=== PATIENT | female | born 1950 | race Caucasian/White ===

== ENCOUNTER 2017-11-07 15:14 | Emergency (ER) | payer MEDICARE, OTHER ==
[~2017-11-07] VITALS: Ht 160 cm; Wt 173.4 kg
[2017-11-07 15:16] VITALS: BP 156/87
[2017-11-07] MEDS ORDERED: HYDR-565 PO (16:00)
== END 2017-11-07 16:13 | disposition home or self-care (01) ==
LOC: ER 15:14
DX: S59.902A Unspecified injury of left elbow, initial encounter (principal); I25.10 Atherosclerotic heart disease of native coronary artery without angina pectoris; E78.00 Pure hypercholesterolemia, unspecified; I10 Essential (primary) hypertension; F17.200 Nicotine dependence, unspecified, uncomplicated; Z95.1 Presence of aortocoronary bypass graft; Z98.61 Coronary angioplasty status; Z79.899 Other long term (current) drug therapy; X58.XXXA Exposure to other specified factors, initial encounter; Y93.89 Activity, other specified; Y92.89 Other specified places as the place of occurrence of the external cause; Y99.8 Other external cause status
CPT/HCPCS: 73080; 99284; A4565

== ENCOUNTER 2017-11-24 09:08 | Outpatient (CLI) | payer MEDICARE, OTHER ==
[2017-11-24 09:10] VITALS: BP 141/71
== END 2017-11-24 10:05 | disposition home or self-care (01) ==
LOC: ORTHO 09:08
PROVIDERS: ATTEND Nurse Practitioner Family
DX: S52.125A Nondisplaced fracture of head of left radius, initial encounter for closed fracture (principal); S59.902A Unspecified injury of left elbow, initial encounter; F17.210 Nicotine dependence, cigarettes, uncomplicated; I10 Essential (primary) hypertension; F12.90 Cannabis use, unspecified, uncomplicated; Z60.2 Problems related to living alone; Z90.710 Acquired absence of both cervix and uterus; Z79.82 Long term (current) use of aspirin; X58.XXXA Exposure to other specified factors, initial encounter; Y93.89 Activity, other specified; Y92.89 Other specified places as the place of occurrence of the external cause; Y99.8 Other external cause status
CPT/HCPCS: 73080; 99213; A4565; A6449

== ENCOUNTER 2017-12-10 11:03 | Outpatient (CLI) | payer MEDICARE, OTHER ==
[2017-12-10 11:03] VITALS: BP 159/80
== END 2017-12-10 11:41 | disposition home or self-care (01) ==
LOC: ORTHO 11:03
PROVIDERS: ATTEND Nurse Practitioner Family
DX: S52.125D Nondisplaced fracture of head of left radius, subsequent encounter for closed fracture with routine healing (principal); S59.902D Unspecified injury of left elbow, subsequent encounter; M85.88 Other specified disorders of bone density and structure, other site; M19.022 Primary osteoarthritis, left elbow; F12.90 Cannabis use, unspecified, uncomplicated; F17.210 Nicotine dependence, cigarettes, uncomplicated; I10 Essential (primary) hypertension; Z90.710 Acquired absence of both cervix and uterus; X58.XXXD Exposure to other specified factors, subsequent encounter
CPT/HCPCS: 73080; 99213

== ENCOUNTER 2018-01-07 10:35 | Outpatient (CLI) | payer MEDICARE, OTHER ==
[2018-01-07 10:57] VITALS: BP 162/85
== END 2018-01-07 11:35 | disposition home or self-care (01) ==
LOC: ORTHO 10:35
PROVIDERS: ATTEND Nurse Practitioner Family
DX: S52.125D Nondisplaced fracture of head of left radius, subsequent encounter for closed fracture with routine healing (principal); S59.902D Unspecified injury of left elbow, subsequent encounter; F12.90 Cannabis use, unspecified, uncomplicated; F17.210 Nicotine dependence, cigarettes, uncomplicated; I10 Essential (primary) hypertension; Z60.2 Problems related to living alone; Z72.89 Other problems related to lifestyle; Z79.82 Long term (current) use of aspirin; Z90.710 Acquired absence of both cervix and uterus; X58.XXXD Exposure to other specified factors, subsequent encounter
CPT/HCPCS: 73080

== ENCOUNTER 2020-01-09 12:38 | Emergency (ER) | payer MEDICARE, OTHER ==
[~2020-01-09] VITALS: Ht 162.6 cm; Wt 79.5 kg
[~2020-01-09 12:38] MED LIST: LIDOcaine 1% W/epiNEPHrine 1:100,000 20ml vial ONE
[2020-01-09 12:55] VITALS: BP 150/86
[2020-01-09] MEDS ORDERED: LIDOcaine 1% W/epiNEPHrine 1:200,000 10ml vial IJ ONE (13:10)
== END 2020-01-09 15:45 | disposition home or self-care (01) ==
LOC: ER 12:39
DX: S81.812A Laceration without foreign body, left lower leg, initial encounter (principal); I25.10 Atherosclerotic heart disease of native coronary artery without angina pectoris; E78.00 Pure hypercholesterolemia, unspecified; I10 Essential (primary) hypertension; Z95.5 Presence of coronary angioplasty implant and graft; Z95.1 Presence of aortocoronary bypass graft; W26.8XXA Contact with other sharp object(s), not elsewhere classified, initial encounter; Y93.01 Activity, walking, marching and hiking; Y92.89 Other specified places as the place of occurrence of the external cause; Y99.9 Unspecified external cause status
CPT/HCPCS: 12004; 99282